=== PATIENT | female | born 1950 | race Caucasian/White ===

== ENCOUNTER 2017-07-29 13:02 | Inpatient (IN) | payer OTHER ==
[~2017-07-29] VITALS: Ht 157.5 cm; Wt 59.4 kg
[2017-07-29] MEDS ORDERED: BISA10SU12 RC (13:24)
[2017-07-29] MEDS ORDERED: ATOR40TA PO (13:24)
[2017-07-29] MEDS ORDERED: MULT1TAB73 PO (13:24)
[2017-07-29] MEDS ORDERED: BISA-79 PO (13:24)
[2017-07-29] MEDS ORDERED: CHOL50004 PO (13:24)
[2017-07-29] MEDS ORDERED: METF1000 PO (13:24)
[2017-07-29] MEDS ORDERED: OMEG1CAP76 PO (13:24)
[2017-07-29] MEDS ORDERED: DICL100G16 TP (13:24)
[2017-07-29] MEDS ORDERED: PANT40TA4 PO (13:24)
[2017-07-29] MEDS ORDERED: ASPI81TA31 PO (13:24)
[2017-07-29] MEDS ORDERED: MAGN400O6 PO (13:24)
[2017-07-29] MEDS ORDERED: DIVA500T2 PO (13:24)
[2017-07-29] MEDS ORDERED: ACET325C PO (13:24)
[2017-07-29] MEDS ORDERED: LISI-658 PO (13:24)
[2017-07-29] MEDS ORDERED: FURO-152 PO (13:24)
[2017-07-29] MEDS ORDERED: PIOG45TA5 PO (13:24)
[2017-07-29] MEDS ORDERED: DONE5TAB7 PO (13:24)
[2017-07-29] MEDS ORDERED: DOCU250C14 PO (13:24)
--- NOTE | 2017-07-29 13:26 | NUR ---
PT IS IN ROOM #1B. DR ANSARI EVALUATED THE PT.
[2017-07-29] MEDS ORDERED: IPRATROPIUM BROMIDE 0.5 MG/2.5 ML NEBU NEB ONE (13:30)
[2017-07-29] MEDS ORDERED: methylPREDNISolone SOD SUCC 40 MG/ML VIAL IV ONE (13:30)
[2017-07-29] MEDS ORDERED: ALBUTEROL SULFATE 2.5 MG/3 ML NEBU NEB ONE (13:30)
[2017-07-29] MEDS ORDERED: IV NORMAL SALINE 500 ML IV ONE (13:30)
[2017-07-29 13:52] LABS: BASOPHILS % (AUTO) 0.3 % (0.0-2.0); EOSINOPHILS % (AUTO) 0.1 % (0.0-7.0); HEMATOCRIT 40.7 % (31.2-41.9); HEMOGLOBIN 13.5 g/dL (10.9-14.3); LYMPHOCYTES # (AUTO) 1.1 K/uL (20.0-40.0); LYMPHOCYTES % (AUTO) 13.6 % (20.5-51.5); MEAN CORPUSCULAR HEMOGLOBIN 29.9 uug (24.7-32.8); MEAN CORPUSCULAR HGB CONC 33 g/dL (32.3-35.6); MEAN CORPUSCULAR VOLUME 90.2 fL (75.5-95.3); MONOCYTES # (AUTO) 0.6 K/uL (2.0-10.0); MONOCYTES % (AUTO) 6.8 % (0.0-11.0); NEUTROPHILS # (AUTO) 6.4 K/uL (1.8-8.9); NEUTROPHILS % (AUTO) 79.2 % (38.5-71.5); RED BLOOD CELL COUNT(AUTO) 4.51 MIL/uL (3.63-4.92); WHITE BLOOD COUNT (AUTO) 8.1 K/uL (3.8-11.8)
[2017-07-29 13:55] LABS: ABG BASE EXCESS -2.3 mmol/L; ABG HCO3 20.2 mmol/L; ABG PCO2 29.1 mmHg (35.0-45.0); ABG PH 7.459 (7.350-7.450); ABG PO2 138.3 mmHg (75.0-100.0); ABG SITE RIGHT RADIAL
[2017-07-29 14:00] LABS: PLATELET COUNT (AUTO) 97 K/uL (179-408)
[2017-07-29] MEDS ORDERED: ALBUTEROL SULFATE 2.5 MG/3 ML NEBU ONE (14:07)
[2017-07-29] MEDS ORDERED: IPRATROPIUM BROMIDE 0.5 MG/2.5 ML NEBU ONE (14:08)
[2017-07-29 14:11] LABS: CREATININE 0.6 mg/dL (0.6-1.3); POTASSIUM 4.2 mmol/L (3.5-5.1)
[2017-07-29 14:17] LABS: BILIRUBIN,TOTAL 0.3 mg/dL (0.2-1.0)
[2017-07-29 14:37] LABS: BAND % (MANUAL) 4 % (0-10); LYMPHOCYTES % (MANUAL) 23 % (20-40); MONOCYTES % (MANUAL) 3 % (2-10); NEUTROPHILS % (MANUAL) 70 % (42-75)
[2017-07-29] MEDS ORDERED: methylPREDNISolone SOD SUCC 125 MG/2 ML VIAL ONE (14:44)
--- NOTE | 2017-07-29 15:55 | NUR ---
PT WAS TRANSFERED TO ROOM #224. REPORT WAS GIVEN TO CHAUFFEUR.
[2017-07-29] MEDS ORDERED: methylPREDNISolone SOD SUCC 40 MG/ML VIAL ONE (16:03)
[2017-07-29 16:50] VITALS: BP 134/74
[2017-07-29] MEDS ORDERED: BISACODYL 10 MG SUPP.RECT RC PRN (17:30)
[2017-07-29] MEDS ORDERED: Medication Not On Formulary EA (Acetaminophen 650 MG) PO PRN ×2 (17:30)
[2017-07-29] MEDS ORDERED: ACETAMINOPHEN 325 MG TABLET PO PRN (17:45)
[2017-07-29] MEDS: METFORMIN HCL 500 MG TABLET PO SCH (17:54)
[2017-07-29] MEDS: DIVALPROEX 500 MG TABLET.DR PO SCH (17:54)
--- NOTE | 2017-07-29 18:34 | NUR ---
PT AWAKE IN BED, IN NO ACUTE DISTRESS. PT ALERT TO SELF. IV INTACT AND PATENT. HEALED WOUND TO SACRUM, PICTURES TAKEN. CALL LIGHT IN REACH
[2017-07-29 20:01] VITALS: BP 108/69
[2017-07-29] MEDS: DONEPEZIL 5 MG TABLET PO SCH (20:09)
[2017-07-29] MEDS: ATORVASTATIN 40 MG TABLET PO SCH (20:09)
--- NOTE | 2017-07-29 21:00 | NUR ---
RN NOTES RECEIVED PATIENT LYING IN BED, AWAKE A/OX2, VERBALLY RESPONSIVE, SPEAKS FARSI, SON IS AT BEDSIDE TO INTERPRET. PER SON PT HAS NO C/O PAIN AT THIS TIME. HAS AN IV ACCESS TO THE R HAND #22 SL, DRY AND INTACT WITH NO S/SX OF INFILTRATION OR PHLEBITIS NOTED. PT HAS GENERALIZED WEAKNESS, BEDREST. WILL REPOSITION Q2. DUE MEDS GIVEN, SEE EMAR. VS ARE TAKEN AND RECORDED, STABLE, SEE FLOWSHEET. PM CARE PROVIDED. FALL PRECAUTIONS MAINTAINED AND SAFETY MEASURES REINFORCED. CALL LIGHT WITHIN REACH. WILL CONTINUE TO MONITOR.
[2017-07-30 04:56] VITALS: BP 157/48
--- NOTE | 2017-07-30 07:41 | NUR ---
RN NOTES ENDORSED PT TO AMINAH MARCIAL IN STABLE CONDITION. ALSO ENDORSED PROTONIX TO BE GIVEN, PT WAS ASLEEP.
--- NOTE | 2017-07-30 08:00 | NUR ---
AWAKE COOPERATE WELL ON FALL /ASPIRATION /SEIZURE PRECAUTION BED ALARM ON AND CALL LIGHT IN REACH NO PAIN OR SOB AT THIS TIME
[2017-07-30] MEDS: METFORMIN HCL 500 MG TABLET PO SCH ×2 (08:23→17:12)
[2017-07-30] MEDS: PANTOPRAZOLE SODIUM 40 MG TABLET.DR PO SCH (08:23)
[2017-07-30] MEDS: PIOGLITAZONE HCL 30 MG TABLET PO SCH (08:24)
[2017-07-30] MEDS ORDERED: CHOLECALCIFEROL 1,000 UNIT TABLET PO SCH (09:00)
[2017-07-30] MEDS ORDERED: Medication Not On Formulary EA (Pioglitazone Hcl (Actos) 45 MG) PO SCH (09:00)
[2017-07-30] MEDS ORDERED: Medication Not On Formulary EA (Multivitamins (Multivitamin) 1 EACH) PO SCH (09:00)
[2017-07-30] MEDS ORDERED: Medication Not On Formulary EA (Metformin Hcl (Glucophage) 1,000 MG) PO SCH (09:00)
[2017-07-30] MEDS: DIVALPROEX 500 MG TABLET.DR PO SCH ×3 (09:21→16:40)
[2017-07-30] MEDS: FUROSEMIDE 20 MG TABLET PO SCH (09:21)
[2017-07-30] MEDS: OMEGA-3 FATTY ACIDS/FISH OIL CAPSULE PO SCH (09:21)
[2017-07-30] MEDS: ASPIRIN 81 MG TAB.CHEW PO SCH (09:21)
[2017-07-30] MEDS: LISINOPRIL 20 MG TABLET PO SCH (09:22)
[2017-07-30] MEDS: DOCUSATE SODIUM 250 MG CAPSULE PO SCH (09:22)
[2017-07-30] MEDS: MULTIVITAMINS,THERAPEUTIC TABLET PO SCH (09:22)
[2017-07-30] MEDS: BISACODYL 5 MG TABLET.DR PO SCH (09:22)
[2017-07-30 11:00] VITALS: BP 118/64
--- NOTE | 2017-07-30 13:00 | NUR ---
DR ERVIN SEE PATIENT AND LAB RESULT ,EAT LUNCH WELL REPOSITION Q2 HR
[2017-07-30 15:10] VITALS: BP 117/58
--- NOTE | 2017-07-30 17:00 | NUR ---
EAT DINNER WITH GOOD APPETITE PO FLD KAVON WELL
[2017-07-30] MEDS ORDERED: Z GUARD REMEDY PASTE 57 GM TUBE TOP PRN (17:15)
--- NOTE | 2017-07-30 17:30 | NUR ---
STABLE HEMODYNAMIC STATUS NO ACUTE DISTRESS NO SOB /NO SEIZURE ACTIVITIES/ ON FALL PRECAUTION BED ALARM ON AND CALL LIGHT IN REACH
[2017-07-30 19:41] VITALS: BP 119/54
[2017-07-30] MEDS: ATORVASTATIN 40 MG TABLET PO SCH (20:36)
[2017-07-30] MEDS: DONEPEZIL 5 MG TABLET PO SCH (20:36)
[2017-07-31 06:15] VITALS: BP 114/75
[2017-07-31 06:17] VITALS: BP 146/82
[2017-07-31] MEDS: PANTOPRAZOLE SODIUM 40 MG TABLET.DR PO SCH ×2 (07:34→10:11)
[2017-07-31] MEDS: OMEGA-3 FATTY ACIDS/FISH OIL CAPSULE PO SCH (10:10)
[2017-07-31] MEDS: BISACODYL 5 MG TABLET.DR PO SCH (10:10)
[2017-07-31] MEDS: FUROSEMIDE 20 MG TABLET PO SCH (10:10)
[2017-07-31] MEDS: ASPIRIN 81 MG TAB.CHEW PO SCH (10:10)
[2017-07-31] MEDS: METFORMIN HCL 500 MG TABLET PO SCH ×2 (10:10→17:49)
[2017-07-31] MEDS: DOCUSATE SODIUM 250 MG CAPSULE PO SCH (10:10)
[2017-07-31] MEDS: PIOGLITAZONE HCL 30 MG TABLET PO SCH (10:11)
[2017-07-31] MEDS: LISINOPRIL 20 MG TABLET PO SCH (10:12)
[2017-07-31] MEDS: DIVALPROEX 500 MG TABLET.DR PO SCH ×3 (10:13→17:49)
[2017-07-31] MEDS: MULTIVITAMINS,THERAPEUTIC TABLET PO SCH (10:13)
[2017-07-31 11:12] VITALS: BP 150/59
--- NOTE | 2017-07-31 14:35 | NUR ---
IV on the right hand #22 pulled out by patient. Restarted IV access on the left wrist #24 using aseptic technique, with good venous return. Wrapped in kerlix to prevent patient from pulling out.
[2017-07-31 15:12] VITALS: BP 148/62
[2017-07-31 20:00] VITALS: BP 125/54
[2017-07-31] MEDS: DONEPEZIL 5 MG TABLET PO SCH (21:51)
[2017-07-31] MEDS: ATORVASTATIN 40 MG TABLET PO SCH (21:51)
[2017-08-01 05:15] VITALS: BP 140/94
--- NOTE | 2017-08-01 05:44 | NUR ---
Patient refused blood draw for routine AM blood works.
--- NOTE | 2017-08-01 07:30 | NUR ---
Attended w/ needs, kept comfortable. No acute resp. distress. Incontinence care provided.
--- NOTE | 2017-08-01 07:35 | NUR ---
Received client in bed awake. No s/s of discomfort, distress, pain or SOB. Received report from mercerizing range feeder
--- NOTE | 2017-08-01 08:30 | NUR ---
Client is compliant with medications. Tries to communicate needs with signs, points out to things, and noted with a good appetite.
[2017-08-01] MEDS: METFORMIN HCL 500 MG TABLET PO SCH ×2 (09:00→17:00)
[2017-08-01] MEDS: OMEGA-3 FATTY ACIDS/FISH OIL CAPSULE PO SCH (09:02)
[2017-08-01] MEDS: MULTIVITAMINS,THERAPEUTIC TABLET PO SCH (09:02)
[2017-08-01] MEDS: DIVALPROEX 500 MG TABLET.DR PO SCH ×3 (09:02→16:58)
[2017-08-01] MEDS: FUROSEMIDE 20 MG TABLET PO SCH (09:02)
[2017-08-01] MEDS: PIOGLITAZONE HCL 30 MG TABLET PO SCH (09:03)
[2017-08-01] MEDS: LISINOPRIL 20 MG TABLET PO SCH (09:05)
[2017-08-01] MEDS: ASPIRIN 81 MG TAB.CHEW PO SCH (09:06)
[2017-08-01] MEDS: DOCUSATE SODIUM 250 MG CAPSULE PO SCH (09:07)
[2017-08-01] MEDS: BISACODYL 5 MG TABLET.DR PO SCH (09:07)
--- NOTE | 2017-08-01 11:00 | NUR ---
Sponge bath given compliant with care. Tries to help out, likes to chew on gum.
[2017-08-01 11:46] VITALS: BP 117/84
--- NOTE | 2017-08-01 13:00 | NUR ---
Able to eat lunch on her own, some help with opening items. Compliant with medications
[2017-08-01 15:40] VITALS: BP 118/70
--- NOTE | 2017-08-01 19:14 | NUR ---
Report given to shift engineer. Client is in bed asleep. No s/s of pain, SOB, distress or discomfort. Compliant with nursing care
[2017-08-01 19:30] VITALS: BP 136/72
[2017-08-01] MEDS: ATORVASTATIN 40 MG TABLET PO SCH (20:22)
[2017-08-01] MEDS: DONEPEZIL 5 MG TABLET PO SCH (20:22)
[2017-08-02 04:00] VITALS: BP 161/71
--- NOTE | 2017-08-02 05:54 | NUR ---
PT SLEPT WELL THROUGH THE NIGHT AND WAS EASILY AWOKEN, PT DENIED HAVING ANY PAIN OR DIFFICULTY BREATHING. PT WAS CALM AND COOPERATIVE THROUGH THE NIGHT. PT SATURATING AT 99% ON ROOM AIR. ALL NEEDS MET, SAFETY MEASURES ARE IN PLACE, CALL LIGHT WITHIN REACH, BED ALARM IS ON.
[2017-08-02] MEDS: PANTOPRAZOLE SODIUM 40 MG TABLET.DR PO SCH (06:32)
--- NOTE | 2017-08-02 07:30 | NUR ---
RECEIVED REPORT FROM BRUSH MAKER NURSE, PATIENT IN BED ASLEEP, NO EVIDENCE OF DISTRESS NOTED, BED IN LOW POSTION, SIDE RAILS UP X2.
[2017-08-02] MEDS: LISINOPRIL 20 MG TABLET PO SCH ×2 (09:00→09:28)
[2017-08-02] MEDS: DIVALPROEX 500 MG TABLET.DR PO SCH ×3 (09:27→16:38)
[2017-08-02] MEDS: METFORMIN HCL 500 MG TABLET PO SCH ×2 (09:28→18:24)
[2017-08-02] MEDS: OMEGA-3 FATTY ACIDS/FISH OIL CAPSULE PO SCH (09:28)
[2017-08-02] MEDS: PIOGLITAZONE HCL 30 MG TABLET PO SCH (09:28)
[2017-08-02] MEDS: MULTIVITAMINS,THERAPEUTIC TABLET PO SCH (09:29)
[2017-08-02] MEDS: ASPIRIN 81 MG TAB.CHEW PO SCH (09:29)
[2017-08-02] MEDS: FUROSEMIDE 20 MG TABLET PO SCH (09:29)
[2017-08-02] MEDS: BISACODYL 5 MG TABLET.DR PO SCH (09:29)
[2017-08-02] MEDS: DOCUSATE SODIUM 250 MG CAPSULE PO SCH (09:29)
[2017-08-02 11:19] VITALS: BP 143/68
[2017-08-02 15:46] VITALS: BP 158/63
--- NOTE | 2017-08-02 17:49 | NUR ---
PATIENT HAS BEEN COOPERATIVE WITH THERAPEUTIC TREATMENT REGIMEN. NO EVIDENCE OF DISTRESS NOTED, BED IN LOW POSITION, SIDE RAILS UP X2. PATIENTS SON HAS REQUESTED THAT SHE RETURNS TO HER ROOM BACK AT THE [facility] SOON POSSIBLE.
--- NOTE | 2017-08-02 19:30 | NUR ---
nsg: pt received confused, a/o x 1. no acute distress noted. denies discomfort. lungs sound clear to auscultate. dvt pumps in place. call light within reach. bed alarm on.
--- NOTE | 2017-08-02 20:30 | NUR ---
nsg: pt vomitted large amout of undigested food. no zofran ordered. will call md. kept clean and dry. HOB elevated 45 degrees. cont to monitor.
[2017-08-02 20:40] VITALS: BP 110/83
[2017-08-02] MEDS ORDERED: ONDANSETRON 4 MG/2 ML VIAL IV PRN (21:30)
[2017-08-02] MEDS: ATORVASTATIN 40 MG TABLET PO SCH (21:47)
[2017-08-02] MEDS: DONEPEZIL 5 MG TABLET PO SCH (21:47)
--- NOTE | 2017-08-02 21:47 | NUR ---
NSG: MEDICATED WITH ZOFRAN 4MG IVP.
[2017-08-02] MEDS ORDERED: ONDANSETRON 4 MG/2 ML VIAL ONE (22:00)
[2017-08-03 04:18] VITALS: BP 102/53
[2017-08-03] MEDS: PANTOPRAZOLE SODIUM 40 MG TABLET.DR PO SCH (06:29)
--- NOTE | 2017-08-03 07:10 | NUR ---
RECEIVED REPORT FROM RUBY ON RAILS WEB DEVELOPER NURSE, PATIENT IN BED AWAKE, NO EVIDENCE OF DISTRESS NOTED, BED IN LOW POSITION, SIDE RAILS UP X2.
[2017-08-03] MEDS: METFORMIN HCL 500 MG TABLET PO SCH ×2 (08:28→17:21)
[2017-08-03] MEDS: ASPIRIN 81 MG TAB.CHEW PO SCH (08:29)
[2017-08-03] MEDS: FUROSEMIDE 20 MG TABLET PO SCH (08:29)
[2017-08-03] MEDS: LISINOPRIL 20 MG TABLET PO SCH ×2 (08:29→08:31)
[2017-08-03] MEDS: DIVALPROEX 500 MG TABLET.DR PO SCH ×3 (08:30→17:21)
[2017-08-03] MEDS: MULTIVITAMINS,THERAPEUTIC TABLET PO SCH (08:30)
[2017-08-03] MEDS: BISACODYL 5 MG TABLET.DR PO SCH (08:30)
[2017-08-03] MEDS: PIOGLITAZONE HCL 30 MG TABLET PO SCH (08:30)
[2017-08-03] MEDS: OMEGA-3 FATTY ACIDS/FISH OIL CAPSULE PO SCH (08:30)
[2017-08-03] MEDS: DOCUSATE SODIUM 250 MG CAPSULE PO SCH (08:30)
[2017-08-03 11:22] VITALS: BP 135/65
[2017-08-03 16:04] VITALS: BP 123/51
--- NOTE | 2017-08-03 17:55 | NUR ---
Patient has been compliant with care, takes medication with ease, no evidence of distress noted, bed in low position, side rails up x2.
--- NOTE | 2017-08-03 19:30 | NUR ---
RECEIVED PATIENT IN BED, NO SOB NO CHEST PAIN, PATIENT HAS GARBLE SPEECH, BUT ABLE TO EXPRESS NEEDS, KEPT CLEAN AND DRY, NO COMPLAIN OF PAIN, CONT TO MONITOR.
[2017-08-03 20:03] VITALS: BP 123/47
[2017-08-03] MEDS: DONEPEZIL 5 MG TABLET PO SCH (20:41)
[2017-08-03] MEDS: ATORVASTATIN 40 MG TABLET PO SCH (20:41)
--- NOTE | 2017-08-04 04:54 | NUR ---
PATIENT SLEPT MOST OF THE NIGHT, NO SOB NO CHEST PAIN, NO COUGHING NOTED, OXYGEN SAT WNL, IN ROOM AIR, KEPT CLEAN AND DRY. TURN AND REPOSITION. NO COMPLAIN OF PAIN.
[2017-08-04 06:02] VITALS: BP 144/54
[2017-08-04] MEDS: PANTOPRAZOLE SODIUM 40 MG TABLET.DR PO SCH ×2 (06:06→08:33)
--- NOTE | 2017-08-04 07:15 | NUR ---
Received patient on bed, awake, alert to self. No acute distress noted. Respirations are even and unlabored. With Saline lock on the Left forearm, intact and patent. No c/o pain at this time. All comfort measures provided. Repositioned for comfort and to prevent skin breakdown. Safety and fall prevention measures observed. Will continue to monitor.
[2017-08-04] MEDS: MULTIVITAMINS,THERAPEUTIC TABLET PO SCH (08:32)
[2017-08-04] MEDS: PIOGLITAZONE HCL 30 MG TABLET PO SCH (08:32)
[2017-08-04] MEDS: OMEGA-3 FATTY ACIDS/FISH OIL CAPSULE PO SCH (08:32)
[2017-08-04] MEDS: DIVALPROEX 500 MG TABLET.DR PO SCH ×2 (08:32→12:08)
[2017-08-04] MEDS: METFORMIN HCL 500 MG TABLET PO SCH (08:32)
[2017-08-04] MEDS: DOCUSATE SODIUM 250 MG CAPSULE PO SCH (08:33)
[2017-08-04] MEDS: FUROSEMIDE 20 MG TABLET PO SCH (08:33)
[2017-08-04] MEDS: ASPIRIN 81 MG TAB.CHEW PO SCH (08:37)
[2017-08-04] MEDS: LISINOPRIL 20 MG TABLET PO SCH (08:37)
[2017-08-04] MEDS: BISACODYL 5 MG TABLET.DR PO SCH (08:37)
--- NOTE | 2017-08-04 11:00 | NUR ---
Discharge to [facility] ordered by Dr. Davison. order carried out, and completed all Nursing discharge papers and instructions. Called and informed Pt's son, Pablo ([phone]) of patient's discharge.
[2017-08-04 12:16] VITALS: BP 118/73
== END 2017-08-04 13:15 | DRG 816 ==
LOC: ER 13:04 → TELE 16:17 → MED 17:20
PROVIDERS: ADMIT Internal Medicine; ATTEND Internal Medicine
DX: T59.811A Toxic effect of smoke, accidental (unintentional), initial encounter (principal); G93.40 Encephalopathy, unspecified; E87.3 Alkalosis; E44.0 Moderate protein-calorie malnutrition; D69.6 Thrombocytopenia, unspecified; E87.1 Hypo-osmolality and hyponatremia; R56.9 Unspecified convulsions; F03.90 Unspecified dementia, unspecified severity, without behavioral disturbance, psychotic disturbance, mood disturbance, and anxiety; E88.09 Other disorders of plasma-protein metabolism, not elsewhere classified; Y92.129 Unspecified place in nursing home as the place of occurrence of the external cause; E11.9 Type 2 diabetes mellitus without complications; I10 Essential (primary) hypertension; K21.9 Gastro-esophageal reflux disease without esophagitis; Z79.84 Long term (current) use of oral hypoglycemic drugs; Z68.24 Body mass index [BMI] 24.0-24.9, adult
CPT/HCPCS: 36415; 36600; 71010; 85025; 93005; A4663; J2405; J2920; J2930; J3590